=== PATIENT | male | born 1960 | race Caucasian/White ===

== ENCOUNTER 2017-03-31 14:04 | Emergency (ER) | payer BC ==
--- NOTE | 2017-03-31 14:57 | EDM.PDOC ---
ED HPI GENERAL MEDICAL PROBLEM - General Chief Complaint: General Stated Complaint: SORE THROAT Time Seen by Provider: 03/31/17 14:35 Source of Information: Reports: Patient History Limitations: Reports: No Limitations - History of Present Illness INITIAL COMMENTS - FREE TEXT/NARRATIVE: According to patient he has been having sore throat and nasal congestion for past 2 days and is mild. No fever or chills. Mild cough on and off. He is asking if he will be treated with antibiotics, as his bone got amox. No loss of appetite. Shortness of breath or wheezing. Severity: Mild Improves with: Reports: None Worsens with: Reports: None Associated Symptoms: Reports: Cough. Denies: Confusion, Chest Pain, Fever/ Chills, Headaches, Nausea/Vomiting, Rash, Shortness of Breath, Syncope, Weakness - Related Data Allergies Allergy/AdvReac Type Severity Reaction Status Date / Time No Known Allergies Allergy Verified 03/31/17 14:45 Home Meds: Home Meds Lisinopril 10 mg PO DAILY 03/31/17 [History] ED ROS GENERAL - Review of Systems Review Of Systems: See Below Constitutional: Denies: Fever, Chills HEENT: Reports: Rhinitis, Throat Pain. Denies: Nose Pain, Sinus Problem, Throat Swelling Respiratory: Reports: Cough. Denies: Shortness of Breath, Wheezing, Pleuritic Chest Pain, Sputum Cardiovascular: Denies: Chest Pain, Lightheadedness GI/Abdominal: Denies: Abdominal Pain, Nausea, Vomiting : Denies: Dysuria, Flank Pain Musculoskeletal: Denies: Joint Pain, Joint Swelling ED EXAM, GENERAL - Physical Exam Exam: See Below Exam Limited By: No Limitations General Appearance: Alert, WD/WN, No Apparent Distress Eye Exam: Bilateral Eye: EOMI, PERRL Ears: Normal External Exam Ear Exam: Bilateral Ear: Auricle Normal, Canal Normal, TM normal Nose: Normal Inspection, Normal Mucosa, Nasal Drainage (minimal clear ) Throat/Mouth: Normal Inspection, Normal Lips, Normal Teeth, Normal Gums, Normal Oropharynx, Normal Voice, No Airway Compromise Head: Atraumatic, Normocephalic Neck: Normal Inspection, Supple, Non-Tender, Full Range of Motion Respiratory/Chest: No Respiratory Distress, Lungs Clear, Normal Breath Sounds, No Accessory Muscle Use, Chest Non-Tender Cardiovascular: Normal Peripheral Pulses, Regular Rate, Rhythm, No Edema, No Gallop, No JVD, No Murmur, No Rub Course - Vital Signs Text/Narrative:: Pt's strep test is negative. CBC was done which shows normal white count of 10K. Pt reassured that he has mild viral upper respiratory infection. This is a self limiting disease. Advised rest and hydration. Steam inhalations 2-3 times daily to drain and keep the upper airway clear. Salt gargles as needed. Zyrtec 10mg daily as needed. Robutussin DM 1-2 teaspoon for cough as needed. Vit C 1000mg daily. - Orders/Labs/Meds Labs: Laboratory Tests 03/31/17 03/31/17 Range/Units 14:55 15:10 WBC 10.0 (4.0-11.0) K/uL RBC 5.02 (4.50-6.50) M/uL Hgb 15.1 (13.0-18.0) g/dL Hct 43.7 (40.0-54.0) % MCV 87 (76-96) fL MCH 30.1 (27.0-32.0) pg MCHC 34.6 (31.0-35.0) g/dL RDW 12.8 (11.0-16.0) % Plt Count 243 (150-400) K/uL MPV 10.5 H (6.0-10.0) fL Neut % (Auto) 68.5 (45.0-70.0) % Lymph % (Auto) 20.0 (20.0-40.0) % Person % (Auto) 6.7 (3.0-10.0) % Eos % (Auto) 4.5 (1.0-5.0) % Baso % (Auto) 0.3 (0.0-0.5) % Neut # (Auto) 6.85 (2.00-7.50) K/uL Lymph # (Auto) 2.00 (1.50-4.00) K/uL Person # (Auto) 0.67 (0.20-0.80) K/uL Eos # (Auto) 0.45 H (0.04-0.40) K/uL Baso # (Auto) 0.03 (0.02-0.10) K/uL POC Group A Strep Rpd Negative (NEGATIVE) Departure - Departure Time of Disposition: 15:45 Disposition: Home, Self-Care 01 Condition: good Clinical Impression: Viral upper respiratory infection - Discharge Information Instructions: Viral Respiratory Infection, [id number] Referrals: PCP,None [Primary Care Provider] - Forms: ED Department Discharge Additional Instructions: Pt's strep test is negative. CBC was done which shows normal white count of 10K. Pt reassured that he has mild viral upper respiratory infection. This is a self limiting disease. Advised rest and hydration. Steam inhalations 2-3 times daily to drain and keep the upper airway clear. Salt gargles as needed. Zyrtec 10mg daily as needed. Robutussin DM 1-2 teaspoon for cough as needed. Vit C 1000mg daily. - Problem List & Annotations (1) Viral upper respiratory infection SNOMED Code(s): 162280984 Code(s): J06.9 - ACUTE UPPER RESPIRATORY INFECTION, UNSPECIFIED; B97.89 - OTH VIRAL AGENTS THE CAUSE OF DISEASES CLASSD [id number] Status: Acute Current Visit: Yes - Problem List Review Problem List Initiated/Reviewed/Updated: Yes - Assessment/Plan Assessment:: Viral URI Plan: Pt's strep test is negative. CBC was done which shows normal white count of 10K.. Pt reassured that he has mild viral upper respiratory infection. This is a self limiting disease. Advised rest and hydration. Steam inhalations 2-3 times daily to drain and keep the upper airway clear. Salt gargles as needed. Zyrtec 10mg daily as needed. Robutussin DM 1-2 teaspoon for cough as needed. Vit C 1000mg daily. Education given. Followup in clinic if symptoms worsen.
[2017-03-31 19:37] VITALS: BP 143/91
== END 2017-03-31 15:45 | disposition home or self-care (01) ==
LOC: LB.ED 14:04
DX: J06.9 Acute upper respiratory infection, unspecified (principal); Z79.899 Other long term (current) drug therapy
CPT/HCPCS: 36415; 85025; 87430; 99283